=== PATIENT | female | born 1955 | race Caucasian/White ===

== ENCOUNTER → 2018-02-08 | Outpatient (CLI) | payer OTHER ==
[~2018-02-08] MED LIST: METOPROLOL SUCC50 MG PO; NEXIUM40 MG PO; SINGULAIR10 MG PO; VASOTEC10 M1 PO
--- NOTE | 2018-02-18 08:25 | Diagnostic Imaging Report ---
#[id number] - MGSCRBIL #BILATERAL DIGITAL SCREENING MAMMOGRAM WITH CAD: 02/08/2018 CLINICAL: Routine screening. Comparison is made to exams dated: 01/29/2017 mammogram and 01/24/2015 mammogram - [facility]. Current study contains 4 films. There are scattered fibroglandular elements in both breasts. Current study was also evaluated with a Computer Aided Detection (CAD) system. There are benign calcifications in both breasts. No significant masses, calcifications, or other findings are seen in either breast. There has been no significant interval change. IMPRESSION: BENIGN There is no mammographic evidence of malignancy. A 1 year screening mammogram is recommended. The patient will be notified by letter of the results. Amador kang/rocco:02/17/2018 08:08:05 Surgeon Assistant: Octavia BAKER(R)(M), [facility] letter sent: Compared to Prior B9 Mammogram BI-RADS: 2 Benign
== END ==
LOC: MAMMO 08:40
PROVIDERS: ATTEND Internal Medicine
DX: Z12.31 Encounter for screening mammogram for malignant neoplasm of breast (principal)
CPT/HCPCS: 77067

== ENCOUNTER 2018-06-21 09:26 | Emergency (ER) | payer OTHER ==
[~2018-06-21] VITALS: Ht 165.1 cm; Wt 81.6 kg
--- OUTSIDE RECORDS SUMMARY | 2018-06-21 09:29 | XMS REPORT | Continuity of Care Document ---
Author Author [facility] Interface Address Unknown Phone Unavailable Problems Problem Status Onset Date Classification Date Reported Comments Source CHEST PAIN Active 04/04/2014 [facility] Hypertension Resolved Problem 04/08/2014 [facility] Pulmonary sarcoidosis Resolved Problem 04/08/2014 [facility] Vertigo Resolved Problem 04/08/2014 [facility] CHEST PAIN NOS Active [facility] Medications Medication Details Route Status Patient Instructions Ordering Provider Order Date Source Lisinopril 20 mg, 1 tab, Route: PO, Drug form: TAB, Daily, Dosing Weight 86.364, kg, Start date: 04/07/14 9:00:00, Duration: 30 day, Stop date: 05/06/14 9:00:00Notes: (Same as: Prinivil, Zestril) No Longer Active 04/07/2014 [facility] Saline Flush 0.9% 10 ml, Route: IVP, Drug Form: INJ, Dosing Weight 86.364, kg, Q12H, Start date: 04/06/14 21:00:00, Duration: 30 day, Stop date: 05/06/14 9:00:00Notes: (Same as: BD Posiflush) Inactive 04/07/2014 [facility] Lipitor 40 mg, 1 tab, Route: PO, Drug form: TAB, Bedtime, Dosing Weight 86.364, kg, Start date: 04/06/14 21:00:00, Duration: 30 day, Stop date: 05/05/14 21:00:00Notes: (Same as: Lipitor) Inactive 04/07/2014 [facility] 24 HR Diltiazem Hydrochloride 180 MG Extended Release Tablet [Cardizem] 180 mg=1 tab, PO, Daily, # 30 tab, 0 Refill(s) Active 04/06/2014 [facility] Saline Flush 0.9% 10 ml, Route: IVP, Drug Form: INJ, Dosing Weight 86.364, kg, PRN, PRN Line Flush, Start date: 04/06/14 10:57:00, Duration: 30 day, Stop date: 05/06/14 10:56:00Notes: (Same as: BD Posiflush) Inactive 04/06/2014 [facility] Nitroglycerin 0.4 mg, Route: SL, Drug form: TAB, Q5Min, Dosing Weight 86.364, kg, PRN Chest Pain, Start date: 04/06/14 10:57:00, Duration: 3 doses or times, Stop date: Limited # of times Inactive 04/06/2014 [facility] Lipitor 80 mg, 2 tab, Route: PO, Drug form: TAB, Bedtime, Dosing Weight 86.364, kg, Start date: 04/05/14 21:00:00, Duration: 30 day, Stop date: 05/04/14 21:00:00Notes: (Same as: Lipitor) No Longer Active 04/06/2014 [facility] Acetylcysteine 200 MG/ML Inhalant Solution 600 mg, 3 mL, Route: PO, Drug form: SOLN, BID, Dosing Weight 86.364, kg, Start date: 04/05/14 17:00:00, Duration: 2 day, Stop date: 04/07/14 9:00:00 No Longer Active 04/05/2014 [facility] NS + KCL 20mEq/L 1000ml (Premix) 1,000 mL 1,000 mL, Rate: 100 ml/hr, Infuse over: 10 hr, Route: IV, Dosing Weight 86.364 kg, Total Volume: 1,000, Start date: 04/05/14 16:41:00, Duration: 30 day, Stop date: 05/05/14 16:40:00Notes: PREMIX IV - Do Not Alter No Longer Active 04/05/2014 [facility] Nitroglycerin 0.4 MG Sublingual Tablet 0.4 mg=1 tab, SL, Q5Min, Chest pain, # 50 tab, 0 Refill(s) Active 04/05/2014 [facility] pantoprazole 20 mg oral enteric coated tablet 20 mg=1 tab, PO, Before Dinner, # 30 tab, 0 Refill(s) No Longer Active 04/05/2014 [facility] 24 HR Metoprolol Tartrate 50 MG Extended Release Tablet [Toprol] 50 mg=1 tab, PO, Daily, # 30 tab, 0 Refill(s) No Longer Active 04/05/2014 [facility] aspirin 81 mg, 1 tab, Route: PO, Drug form: ECTAB, Daily, Dosing Weight 86.364, kg, Start date: 04/05/14 9:00:00, Duration: 30 day, Stop date: 05/04/14 9:00:00Notes: Do not crush or chew. (Same As: Ecotrin) No Longer Active 04/05/2014 [facility] Nexium 40 mg, Route: PO, Daily, Dosing Weight 86.364, kg, Start date: 04/05/14 9:00:00, Duration: 30 day, Stop date: 05/04/14 9:00:00 No Longer Active 04/05/2014 [facility] Enalapril 10 mg, 1 tab, Route: PO, Drug form: TAB, Daily, Dosing Weight 86.364, kg, Start date: 04/05/14 9:00:00, Duration: 30 day, Stop date: 05/04/14 9:00:00Notes: (Same as: Vasotec) No Longer Active 04/05/2014 [facility] 24 HR Metoprolol Tartrate 50 MG Extended Release Tablet [Toprol] 50 mg, 1 tab, Route: PO, Drug form: ERTAB, Daily, Start date: 04/05/14 9:00:00, Duration: 30 day, Stop date: 05/04/14 9:00:00Notes: (Same as: Toprol XL) May split tab, but do not crush. No Longer Active 04/05/2014 [facility] Lisinopril 10 mg, 1 tab, Route: PO, Drug form: TAB, Daily, Dosing Weight 86.364, kg, Start date: 04/05/14 9:00:00, Duration: 30 day, Stop date: 05/04/14 9:00:00Notes: (Same as: Prinivil, Zestril) No Longer Active 04/05/2014 [facility] Protonix 20 mg, 1 tab, Route: PO, Drug form: ECTAB, Before Dinner, Dosing Weight 86.364, kg, Start date: 04/04/14 23:59:00, Duration: 30 day, Stop date: 05/03/14 16:30:00Notes: Tablet should not be chewed or crushed. No Longer Active 04/05/2014 [facility] Phenergan 12.5 mg, 0.5 mL, Route: IVPB, Q4H, Dosing Weight 86.364, kg, PRN Nausea & Vomiting, Start date: 04/04/14 22:22:00, Duration: 30 day, Stop date: 05/04/14 22:21:00Notes: Do not give IV push. (Same as: Phenergan) No Longer Active 04/05/2014 [facility] Atropine 0.5 mg, 5 mL, Route: IV, Drug form: INJ, ONCE, Dosing Weight 86.364, kg, PRN Bradycardia, Start date: 04/04/14 18:56:00, Symptomatic Bradycardia, Heart rate less than 40. No Longer Active 04/05/2014 [facility] Nitroglycerin 0.4 MG Sublingual Tablet [Nitrostat] 0.4 mg, 1 tab, Route: SL, Drug form: TAB, Q5Min, Dosing Weight 86.364, kg, PRN Chest Pain, Start date: 04/04/14 18:56:00, Duration: 3 doses or times, Stop date: Limited # of timesNotes: (Same as:Nitroquick, Nitrostat) "Do Not Crush" Sublingual tablet No Longer Active 04/05/2014 [facility] Ondansetron 4 mg, 2 mL, Route: IV, Drug form: INJ, Q6H, Dosing Weight 86.364, kg, PRN Nausea, Start date: 04/04/14 18:55:00, Duration: 30 day, Stop date: 05/04/14 18:54:00Notes: (Same as: Zofran) No Longer Active 04/05/2014 [facility] Enoxaparin 40 mg, 0.4 mL, Route: SUB-Q, Drug form: INJ, [id number], Dosing Weight 86.364, kg, Start date: 04/04/14 18:00:00, Duration: 30 day, Stop date: 05/03/14 18:00:00Notes: (Same as: Lovenox) No Longer Active 04/05/2014 [facility] enalapril 10 mg oral tablet 10 mg=1 tab, PO, Daily, # 30 tab, 0 Refill(s) Active 04/04/2014 [facility] metoprolol 100 mg oral tablet, extended release 100 mg=1 tab, PO, BID, 0 Refill(s) No Longer Active 04/04/2014 [facility] aspirin 81 mg, PO, Daily, 0 Refill(s) Active 04/04/2014 [facility] Nexium Daily, 0 Refill(s) Active 04/04/2014 [facility] Allergies, Adverse Reactions, Alerts Substance Category Reaction Severity Reaction type Status Date Reported Comments Source Nubain Assertion Drug allergy Active [facility] Immunizations Immunization Date Given Site Status Last Updated Comments Source Results Order Name Results Value Reference Range Date Interpretation Comments Source ELECTROLYTES Chloride Lvl 107 meq/L 95 - 109 04/06/2014 [facility] ELECTROLYTES Potassium Lvl 4.0 meq/L 3.5 - 5.1 04/06/2014 [facility] ELECTROLYTES Sodium Lvl 143 meq/L 135 - 145 04/06/2014 [facility] ELECTROLYTES eGFR 82 mL/min/1.73m2 04/06/2014 1Result Comment: The eGFR is calculated using the CKD-EPI formula. In most young, healthy individuals the eGFR will be >90 mL/min/1.73m2. The eGFR declines with age. An eGFR of 60-89 may be normal in some populations, particularly the elderly, for whom the CKD-EPI formula has not been extensively validated. Use of the eGFR is not recommended in the following populations: Individuals with unstable creatinine concentrations, including patients and those with serious co-morbid conditions. Patients with extremes in muscle mass or diet. The data above are obtained from the National Kidney Disease Education Program (NKDEP) which additionally recommends that when the eGFR is used in patients with extremes of body mass index for purposes of drug dosing, the eGFR should be multiplied by the estimated BMI. [facility] ELECTROLYTES BUN 10 mg/dL 7 - 22 04/06/2014 [facility] ELECTROLYTES Creatinine Lvl 0.8 mg/dL 0.5 - 1.4 04/06/2014 [facility] ELECTROLYTES CO2 31 meq/L 24 - 32 04/06/2014 [facility] ELECTROLYTES Glucose Lvl 93 mg/dL 70 - 99 04/06/2014 4Interpretive Data: Adult reference range values reflect the clinical guidelines of the [place] [employer]. [facility] ELECTROLYTES Calcium Lvl 8.4 mg/dL 8.5 - 10.5 04/06/2014 [facility] ELECTROLYTES AGAP 9.0 meq/L 10.0 - 20.0 04/06/2014 [facility] CHEM PANEL A/G Ratio 1.3 0.7 - 1.6 04/06/2014 [facility] CHEM PANEL Globulin 2.7 g/dL 2.0 - 4.0 04/06/2014 [facility] CHEM PANEL AGAP 9.6 meq/L 10.0 - 20.0 04/06/2014 [facility] CHEM PANEL B/C Ratio 12 6 - 25 04/06/2014 [facility] CHEM PANEL eGFR 82 mL/min/1.73m2 04/06/2014 2Result Comment: The eGFR is calculated using the CKD-EPI formula. In most young, healthy individuals the eGFR will be >90 mL/min/1.73m2. The eGFR declines with age. An eGFR of 60-89 may be normal in some populations, particularly the elderly, for whom the CKD-EPI formula has not been extensively validated. Use of the eGFR is not recommended in the following populations: Individuals with unstable creatinine concentrations, including patients and those with serious co-morbid conditions. Patients with extremes in muscle mass or diet. The data above are obtained from the National Kidney Disease Education Program (NKDEP) which additionally recommends that when the eGFR is used in patients with extremes of body mass index for purposes of drug dosing, the eGFR should be multiplied by the estimated BMI. [facility] CHEM PANEL Calcium Lvl 8.2 mg/dL 8.5 - 10.5 04/06/2014 [facility] CHEM PANEL CO2 27 meq/L 24 - 32 04/06/2014 [facility] CHEM PANEL Creatinine Lvl 0.8 mg/dL 0.5 - 1.4 04/06/2014 [facility] CHEM PANEL BUN 10 mg/dL 7 - 22 04/06/2014 [facility] CHEM PANEL Glucose Lvl 90 mg/dL 70 - 99 04/06/2014 5Interpretive Data: Adult reference range values reflect the clinical guidelines of the [place] [employer]. [facility] CHEM PANEL Bili Total 0.5 mg/dL 0.2 - 1.3 04/06/2014 [facility] CHEM PANEL AST 26 unit/L 0 - 37 04/06/2014 [facility] CHEM PANEL Alk Phos 78 unit/L 39 - 136 04/06/2014 [facility] CHEM PANEL Albumin Lvl 3.4 g/dL 3.5 - 5.0 04/06/2014 [facility] CHEM PANEL ALT 29 unit/L 0 - 65 04/06/2014 [facility] CHEM PANEL Total Protein 6.1 g/dL 6.4 - 8.4 04/06/2014 [facility] CHEM PANEL Sodium Lvl 142 meq/L 135 - 145 04/06/2014 [facility] CHEM PANEL Potassium Lvl 3.6 meq/L 3.5 - 5.1 04/06/2014 [facility] CHEM PANEL Chloride Lvl 109 meq/L 95 - 109 04/06/2014 [facility] HEMATOLOGY MPV 9.4 fL 7.4 - 10.4 04/06/2014 [facility] HEMATOLOGY Platelet 172 K/CMM 133 - 450 04/06/2014 [facility] HEMATOLOGY WBC 3.4 K/CMM 3.7 - 10.4 04/06/2014 [facility] HEMATOLOGY MCHC 33.7 g/dL 32.0 - 36.0 04/06/2014 [facility] HEMATOLOGY RDW 13.7 % 11.5 - 14.5 04/06/2014 [facility] HEMATOLOGY MCV 84.5 fL 80.0 - 98.0 04/06/2014 [facility] RBC 4.32 M/CMM 4.20 - 5.40 04/06/2014 [facility] Hgb 12.3 g/dL 12.0 - 16.0 04/06/2014 [facility] HEMATOLOGY Hct 36.5 % 36.0 - 48.0 04/06/2014 [facility] MCH 28.5 pg 27.0 - 31.0 04/06/2014 [facility] HEMATOLOGY Eosinophils # 0.2 K/CMM 0.0 - 0.5 04/06/2014 [facility] HEMATOLOGY Basophils 1.4 % 0.0 - 1.0 04/06/2014 [facility] HEMATOLOGY Segs-Bands # 1.8 K/CMM 1.5 - 8.1 04/06/2014 [facility] HEMATOLOGY Lymphocytes # 1.0 K/CMM 1.0 - 5.5 04/06/2014 [facility] HEMATOLOGY Monocytes # 0.4 K/CMM 0.0 - 0.8 04/06/2014 [facility] HEMATOLOGY Lymphocytes 28.5 % 20.0 - 40.0 04/06/2014 [facility] HEMATOLOGY Monocytes 11.3 % 2.0 - 12.0 04/06/2014 [facility] HEMATOLOGY Eosinophils 5.3 % 0.0 - 4.0 04/06/2014 [facility] HEMATOLOGY Segs 53.5 % 45.0 - 75.0 04/06/2014 [facility] ELECTROLYTES AGAP 10.0 meq/L 10.0 - 20.0 04/05/2014 [facility] ELECTROLYTES Globulin 2.6 g/dL 2.0 - 4.0 04/05/2014 [facility] ELECTROLYTES B/C Ratio 15 6 - 25 04/05/2014 [facility] ELECTROLYTES A/G Ratio 1.4 0.7 - 1.6 04/05/2014 [facility] ELECTROLYTES Creatinine Lvl 0.8 mg/dL 0.5 - 1.4 04/05/2014 [facility] ELECTROLYTES Potassium Lvl 4.0 meq/L 3.5 - 5.1 04/05/2014 [facility] ELECTROLYTES Sodium Lvl 143 meq/L 135 - 145 04/05/2014 [facility] ELECTROLYTES Chloride Lvl 107 meq/L 95 - 109 04/05/2014 [facility] ELECTROLYTES Albumin Lvl 3.7 g/dL 3.5 - 5.0 04/05/2014 [facility] ELECTROLYTES Calcium Lvl 8.9 mg/dL 8.5 - 10.5 04/05/2014 [facility] ELECTROLYTES eGFR 82 mL/min/1.73m2 04/05/2014 3Result Comment: The eGFR is calculated using the CKD-EPI formula. In most young, healthy individuals the eGFR will be >90 mL/min/1.73m2. The eGFR declines with age. An eGFR of 60-89 may be normal in some populations, particularly the elderly, for whom the CKD-EPI formula has not been extensively validated. Use of the eGFR is not recommended in the following populations: Individuals with unstable creatinine concentrations, including patients and those with serious co-morbid conditions. Patients with extremes in muscle mass or diet. The data above are obtained from the National Kidney Disease Education Program (NKDEP) which additionally recommends that when the eGFR is used in patients with extremes of body mass index for purposes of drug dosing, the eGFR should be multiplied by the estimated BMI. [facility] ELECTROLYTES ALT 31 unit/L 0 - 65 04/05/2014 [facility] ELECTROLYTES AST 20 unit/L 0 - 37 04/05/2014 [facility] ELECTROLYTES CO2 30 meq/L 24 - 32 04/05/2014 [facility] Total Protein 6.3 g/dL 6.4 - 8.4 04/05/2014 [facility] Glucose Lvl 88 mg/dL 70 - 99 04/05/2014 6Interpretive Data: Adult reference range values reflect the clinical guidelines of the [place] [employer]. [facility] ELECTROLYTES BUN 12 mg/dL 7 - 22 04/05/2014 [facility] ELECTROLYTES Bili Total 0.5 mg/dL 0.2 - 1.3 04/05/2014 [facility] ELECTROLYTES Alk Phos 82 unit/L 39 - 136 04/05/2014 [facility] HEMATOLOGY RDW 13.9 % 11.5 - 14.5 04/05/2014 [facility] MCHC 32.3 g/dL 32.0 - 36.0 04/05/2014 [facility] HEMATOLOGY MPV 10.2 fL 7.4 - 10.4 04/05/2014 [facility] HEMATOLOGY Platelet 176 K/CMM 133 - 450 04/05/2014 [facility] MCH 27.7 pg 27.0 - 31.0 04/05/2014 [facility] MCV 85.6 fL 80.0 - 98.0 04/05/2014 [facility] HEMATOLOGY Hct 38.4 % 36.0 - 48.0 04/05/2014 [facility] RBC 4.48 M/CMM 4.20 - 5.40 04/05/2014 [facility] HEMATOLOGY WBC 4.8 K/CMM 3.7 - 10.4 04/05/2014 [facility] HEMATOLOGY Hgb 12.4 g/dL 12.0 - 16.0 04/05/2014 [facility] HEMATOLOGY Monocytes # 0.4 K/CMM 0.0 - 0.8 04/05/2014 [facility] HEMATOLOGY Lymphocytes # 1.0 K/CMM 1.0 - 5.5 04/05/2014 [facility] HEMATOLOGY Eosinophils # 0.1 K/CMM 0.0 - 0.5 04/05/2014 [facility] HEMATOLOGY Basophils # 0.1 K/CMM 0.0 - 0.2 04/05/2014 [facility] HEMATOLOGY Segs 67.4 % 45.0 - 75.0 04/05/2014 [facility] HEMATOLOGY Monocytes 7.9 % 2.0 - 12.0 04/05/2014 [facility] HEMATOLOGY Lymphocytes 20.7 % 20.0 - 40.0 04/05/2014 [facility] HEMATOLOGY Basophils 1.3 % 0.0 - 1.0 04/05/2014 [facility] HEMATOLOGY Eosinophils 2.7 % 0.0 - 4.0 04/05/2014 [facility] Segs-Bands # 3.2 K/CMM 1.5 - 8.1 04/05/2014 [facility] CARDIAC ENZYMES Troponin-I 0.06 ng/mL 0.00 - 0.40 04/05/2014 [facility] CARDIAC ENZYMES Total CK 28 unit/L 12 - 191 04/05/2014 [facility] CARDIAC ENZYMES Troponin-I 0.06 ng/mL 0.00 - 0.40 04/05/2014 [facility] CARDIAC ENZYMES Total CK 28 unit/L 12 - 191 04/05/2014 [facility] CARDIAC ENZYMES BNP 161 pg/mL <=100 pg/mL 04/05/2014 7Interpretive Data: Elevated results are in line with increasing severity of congestive heart failure. Minor elevations between 100 and 300 may be seen with Myocardial Ischemia, Sodium retaining drugs, and compensated/treated heart failure. [facility] CHEM PANEL Alk Phos 88 unit/L 39 - 136 04/05/2014 [facility] CHEM PANEL AST 20 unit/L 0 - 37 04/05/2014 [facility] CHEM PANEL Bili Total 0.5 mg/dL 0.2 - 1.3 04/05/2014 [facility] CHEM PANEL Total Protein 6.6 g/dL 6.4 - 8.4 04/05/2014 [facility] CHEM PANEL Albumin Lvl 3.9 g/dL 3.5 - 5.0 04/05/2014 [facility] CHEM PANEL ALT 34 unit/L 0 - 65 04/05/2014 [facility] CHEM PANEL Globulin 2.7 g/dL 2.0 - 4.0 04/05/2014 [facility] CHEM PANEL B/C Ratio 16 6 - 25 04/05/2014 [facility] CHEM PANEL A/G Ratio 1.4 0.7 - 1.6 04/05/2014 [facility] RBC 4.63 M/CMM 4.20 - 5.40 04/05/2014 [facility] WBC 4.6 K/CMM 3.7 - 10.4 04/05/2014 [facility] Hgb 13.1 g/dL 12.0 - 16.0 04/05/2014 [facility] Platelet 172 K/CMM 133 - 450 04/05/2014 [facility] MPV 9.9 fL 7.4 - 10.4 04/05/2014 [facility] Hct 39.1 % 36.0 - 48.0 04/05/2014 [facility] MCH 28.3 pg 27.0 - 31.0 04/05/2014 [facility] MCV 84.6 fL 80.0 - 98.0 04/05/2014 [facility] RDW 13.6 % 11.5 - 14.5 04/05/2014 [facility] HEMATOLOGY MCHC 33.4 g/dL 32.0 - 36.0 04/05/2014 [facility] HEMATOLOGY PTT 36.8 s 22.9 - 35.8 04/05/2014 8Interpretive Data: Heparin Therapeutic Range: 57 - 92 Seconds [facility] LIPIDS CHD Risk 3.25 3.90 - 5.80 04/05/2014 [facility] LIPIDS LDL (Calculated) 101 mg/dL <=99 mg/dL 04/05/2014 [facility] LIPIDS VLDL 25 04/05/2014 [facility] LIPIDS Trig 127 mg/dL <=149 mg/dL 04/05/2014 [facility] LIPIDS Chol 182 mg/dL <=199 mg/dL 04/05/2014 [facility] LIPIDS HDL 56 mg/dL >=61 mg/dL 04/05/2014 [facility] THYROID PANEL TSH 1.490 uIU/mL 0.360 - 3.740 04/05/2014 [facility] Vital Signs Vital Sign Value Date Comments Source Heart Rate 57 04/06/2014 [facility] Diastolic (mm Hg) 77 04/06/2014 [facility] Systolic (mm Hg) 124 04/06/2014 [facility] Heart Rate 58 04/06/2014 [facility] Diastolic (mm Hg) 78 04/06/2014 [facility] Systolic (mm Hg) 125 04/06/2014 [facility] Temperature Oral (F) 97.6 F 04/06/2014 [facility] Systolic (mm Hg) 135 04/06/2014 [facility] Diastolic (mm Hg) 78 04/06/2014 [facility] Heart Rate 59 04/06/2014 [facility] Respitory Rate 16 04/06/2014 [facility] Weight 83.182 04/06/2014 [facility] Respitory Rate 16 04/06/2014 [facility] Temperature Oral (F) 97.3 F 04/06/2014 [facility] Temperature Oral (F) 97.9 F 04/06/2014 [facility] Respitory Rate 16 04/06/2014 [facility] BMI Calculated 31.68 04/04/2014 [facility] Weight 86.364 04/04/2014 [facility] Height 165.1 cm 04/04/2014 [facility] Encounters Location Location Details Encounter Type Encounter Number Reason For Visit Attending Provider ADM Date DC Date Status Source [facility] Inpatient [id number] Francisco Ugarte 04/06/2014 04/06/2014 [facility] Procedures Procedure Code Date Perfomer Comments Source Cardiac catheterization, combined right and left heart [id number] [facility] Hysterectomy [id number] [facility]
--- OUTSIDE RECORDS SUMMARY | 2018-06-21 09:29 | XMS REPORT | Summary of Care ---
Author Organization Unknown Address Unknown Phone Unavailable Encounter HQ Luc(CIRILO) [id number] Date(s): 04/06/14 - 04/06/14 [facility] [address] [address] Discharge Disposition: Home Physician Attending: Francisco Ugarte MD Physician Admitting: Francisco Ugarte MD Physician_Referring: Francisco Ugarte MD Reason for Visit CHEST PAIN Vital Signs 1 2 3 Most recent to oldest [Reference Range]: 165.1 cm (04/04/14 4:31 PM) Height 97.6 DegF (04/06/14 12:00 PM) 97.3 DegF (04/06/14 8:00 AM) 97.9 DegF (04/06/14 4:00 AM) Temperature Oral [96.4-99.1 DegF] 124 mmHg (04/06/14 12:45 PM) 125 mmHg (04/06/14 12:15 PM) 135 mmHg (04/06/14 12:00 PM) Systolic Blood Pressure [90-140 mmHg] 77 mmHg (04/06/14 12:45 PM) 78 mmHg (04/06/14 12:15 PM) 78 mmHg (04/06/14 12:00 PM) Diastolic Blood Pressure [60-90 mmHg] 16 BRMIN (04/06/14 12:00 PM) 16 BRMIN (04/06/14 8:00 AM) 16 BRMIN (04/06/14 4:00 AM) Respiratory Rate [14-20 BRMIN] 57 bpm *LOW* (04/06/14 12:45 PM) 58 bpm *LOW* (04/06/14 12:15 PM) 59 bpm *LOW* (04/06/14 12:00 PM) Peripheral Pulse Rate [60-100 bpm] 83.182 kg (04/06/14 8:15 AM) 83.182 kg (04/06/14 8:15 AM) 86.364 kg (04/04/14 4:31 PM) Weight 31.68 m2 (04/04/14 4:31 PM) Body Mass Index Problem List Condition Effective Dates Status Health Status Informant Hypertension(Confirm Resolved ed) Pulmonary Resolved sarcoidosis(Confirme d) Vertigo(Confirmed) Resolved Allergies, Adverse Reactions, Alerts Substance Reaction Severity Status Nubain Active Medications aspirin 81 mg, 1 tab, Route: PO, Drug form: ECTAB, Daily, Dosing Weight 86.364, kg, Star t date: 04/05/14 9:00:00, Duration: 30 day, Stop date: 05/04/14 9:00:00 Notes: Do not crush or chew.(Same As: Ecotrin) Start Date: 04/05/14 Stop Date: 04/06/14 Status: Discontinued aspirin 81 mg, PO, Daily, 0 Refill(s) Start Date: 04/04/14 Status: Ordered atropine 0.5 mg, 5 mL, Route: IV, Drug form: INJ, ONCE, Dosing Weight 86.364, kg, PRN Bra dycardia, Start date: 04/04/14 18:56:00, Symptomatic Bradycardia, Heart rate les s than 40. Start Date: 04/04/14 Stop Date: 04/06/14 Status: Discontinued Cardizem LA 180 mg/24 hours oral tablet, extended release 180 mg=1 tab, PO, Daily, # 30 tab, 0 Refill(s) Start Date: 04/06/14 Status: Ordered enalapril 10 mg, 1 tab, Route: PO, Drug form: TAB, Daily, Dosing Weight 86.364, kg, Start date: 04/05/14 9:00:00, Duration: 30 day, Stop date: 05/04/14 9:00:00 Notes: (Same as: Vasotec) Start Date: 04/05/14 Stop Date: 04/06/14 Status: Discontinued enalapril 10 mg oral tablet 10 mg=1 tab, PO, Daily, # 30 tab, 0 Refill(s) Start Date: 04/04/14 Status: Ordered enoxaparin 40 mg, 0.4 mL, Route: SUB-Q, Drug form: INJ, [id number], Dosing Weight 86.364, kg, Start date: 04/04/14 18:00:00, Duration: 30 day, Stop date: 05/03/14 18:00:00 Notes: (Same as: Lovenox) Start Date: 04/04/14 Stop Date: 04/06/14 Status: Discontinued Lipitor 40 mg, 1 tab, Route: PO, Drug form: TAB, Bedtime, Dosing Weight 86.364, kg, Star t date: 04/06/14 21:00:00, Duration: 30 day, Stop date: 05/05/14 21:00:00 Notes: (Same as: Lipitor) Start Date: 04/06/14 Stop Date: 04/06/14 Status: Canceled Lipitor 80 mg, 2 tab, Route: PO, Drug form: TAB, Bedtime, Dosing Weight 86.364, kg, Star t date: 04/05/14 21:00:00, Duration: 30 day, Stop date: 05/04/14 21:00:00 Notes: (Same as: Lipitor) Start Date: 04/05/14 Stop Date: 04/06/14 Status: Discontinued lisinopril 20 mg, 1 tab, Route: PO, Drug form: TAB, Daily, Dosing Weight 86.364, kg, Start date: 04/07/14 9:00:00, Duration: 30 day, Stop date: 05/06/14 9:00:00 Notes: (Same as: Prinivil, Zestril) Start Date: 04/07/14 Stop Date: 04/06/14 Status: Canceled lisinopril 10 mg, 1 tab, Route: PO, Drug form: TAB, Daily, Dosing Weight 86.364, kg, Start date: 04/05/14 9:00:00, Duration: 30 day, Stop date: 05/04/14 9:00:00 Notes: (Same as: Prinivil, Zestril) Start Date: 04/05/14 Stop Date: 04/04/14 Status: Canceled metoprolol 100 mg oral tablet, extended release 100 mg=1 tab, PO, BID, 0 Refill(s) Start Date: 04/04/14 Stop Date: 04/05/14 Status: Discontinued Mucomyst oral solution (mg) 600 mg, 3 mL, Route: PO, Drug form: SOLN, BID, Dosing Weight 86.364, kg, Start d ate: 04/05/14 17:00:00, Duration: 2 day, Stop date: 04/07/14 9:00:00 Start Date: 04/05/14 Stop Date: 04/06/14 Status: Discontinued NexIUM 40 mg, Route: PO, Daily, Dosing Weight 86.364, kg, Start date: 04/05/14 9:00:00, Duration: 30 day, Stop date: 05/04/14 9:00:00 Start Date: 04/05/14 Stop Date: 04/04/14 Status: Deleted NexIUM Daily, 0 Refill(s) Start Date: 04/04/14 Status: Ordered nitroglycerin 0.4 mg sublingual tablet 0.4 mg=1 tab, SL, Q5Min, Chest pain, # 50 tab, 0 Refill(s) Start Date: 04/05/14 Status: Ordered nitroglycerin SL Tab 0.4 mg, Route: SL, Drug form: TAB, Q5Min, Dosing Weight 86.364, kg, PRN Chest Pa in, Start date: 04/06/14 10:57:00, Duration: 3 doses or times, Stop date: Limite d # of times Start Date: 04/06/14 Stop Date: 04/06/14 Status: Deleted Nitrostat 0.4 mg sublingual tablet 0.4 mg, 1 tab, Route: SL, Drug form: TAB, Q5Min, Dosing Weight 86.364, kg, PRN C hest Pain, Start date: 04/04/14 18:56:00, Duration: 3 doses or times, Stop date: Limited # of times Notes: (Same as:Nitroquick, Nitrostat)"Do Not Crush" Sublingual tablet Start Date: 04/04/14 Stop Date: 04/06/14 Status: Discontinued NS + KCL 20mEq/L 1000ml (Premix) 1,000 mL 1,000 mL, Rate: 100 ml/hr, Infuse over: 10 hr, Route: IV, Dosing Weight 86.364 k g, Total Volume: 1,000, Start date: 04/05/14 16:41:00, Duration: 30 day, Stop da te: 05/05/14 16:40:00 Notes: PREMIX IV - Do Not Alter Start Date: 04/05/14 Stop Date: 04/06/14 Status: Discontinued ondansetron 4 mg, 2 mL, Route: IV, Drug form: INJ, Q6H, Dosing Weight 86.364, kg, PRN Nausea , Start date: 04/04/14 18:55:00, Duration: 30 day, Stop date: 05/04/14 18:54:00 Notes: (Same as: Zofran) Start Date: 04/04/14 Stop Date: 04/06/14 Status: Discontinued pantoprazole 20 mg oral enteric coated tablet 20 mg=1 tab, PO, Before Dinner, # 30 tab, 0 Refill(s) Start Date: 04/05/14 Stop Date: 04/06/14 Status: Discontinued Phenergan + Sodium Chloride 0.9% IV 50 mL 12.5 mg, 0.5 mL, Route: IVPB, Q4H, Dosing Weight 86.364, kg, PRN Nausea & Vomiting, Start date: 04/04/14 22:22:00, Duration: 30 day, Stop date: 05/04/14 22:21:00 Notes: Do not give IV push. (Same as: Phenergan) Start Date: 04/04/14 Stop Date: 04/06/14 Status: Discontinued Protonix 20 mg, 1 tab, Route: PO, Drug form: ECTAB, Before Dinner, Dosing Weight 86.364, kg, Start date: 04/04/14 23:59:00, Duration: 30 day, Stop date: 05/03/14 16:30:0 0 Notes: Tablet should not be chewed or crushed. Start Date: 04/04/14 Stop Date: 04/06/14 Status: Discontinued Saline Flush 0.9% 10 ml, Route: IVP, Drug Form: INJ, Dosing Weight 86.364, kg, PRN, PRN Line Flush , Start date: 04/06/14 10:57:00, Duration: 30 day, Stop date: 05/06/14 10:56:00 Notes: (Same as: BD Posiflush) Start Date: 04/06/14 Stop Date: 04/06/14 Status: Discontinued Saline Flush 0.9% 10 ml, Route: IVP, Drug Form: INJ, Dosing Weight 86.364, kg, Q12H, Start date: 0 04/06/14 21:00:00, Duration: 30 day, Stop date: 05/06/14 9:00:00 Notes: (Same as: BD Posiflush) Start Date: 04/06/14 Stop Date: 04/06/14 Status: Canceled Toprol-XL 50 mg oral tablet, extended release 50 mg, 1 tab, Route: PO, Drug form: ERTAB, Daily, Start date: 04/05/14 9:00:00, Duration: 30 day, Stop date: 05/04/14 9:00:00 Notes: (Same as: Toprol XL) May split tab, but do not crush. Start Date: 04/05/14 Stop Date: 04/06/14 Status: Discontinued Toprol-XL 50 mg oral tablet, extended release 50 mg=1 tab, PO, Daily, # 30 tab, 0 Refill(s) Start Date: 04/05/14 Stop Date: 04/06/14 Status: Discontinued Results ELECTROLYTES 1 2 3 Most recent to oldest [Reference Range]: 143 mEq/L (04/06/14 11:52 AM) 142 mEq/L (04/06/14 5:30 AM) 143 mEq/L (04/05/14 3:00 AM) Sodium Lvl [135-145 mEq/L] 4.0 mEq/L (04/06/14 11:52 AM) 3.6 mEq/L (04/06/14 5:30 AM) 4.0 mEq/L (04/05/14 3:00 AM) Potassium Lvl [3.5-5.1 mEq/L] 107 mEq/L (04/06/14 11:52 AM) 109 mEq/L (04/06/14 5:30 AM) 107 mEq/L (04/05/14 3:00 AM) Chloride Lvl [95-109 mEq/L] 31 mEq/L (04/06/14 11:52 AM) 27 mEq/L (04/06/14 5:30 AM) 30 mEq/L (04/05/14 3:00 AM) CO2 [24-32 mEq/L] 9.0 mEq/L *LOW* (04/06/14 11:52 AM) 9.6 mEq/L *LOW* (04/06/14 5:30 AM) 10.0 mEq/L (04/05/14 3:00 AM) AGAP [10.0-20.0 mEq/L] CHEM PANEL 1 2 3 Most recent to oldest [Reference Range]: 0.8 mg/dL (04/06/14 11:52 AM) 0.8 mg/dL (04/06/14 5:30 AM) 0.8 mg/dL (04/05/14 3:00 AM) Creatinine Lvl [0.5-1.4 mg/dL] 82 mL/min/1.73m2 1 *NA* (04/06/14 11:52 AM) 82 mL/min/1.73m2 2 *NA* (04/06/14 5:30 AM) 82 mL/min/1.73m2 3 *NA* (04/05/14 3:00 AM) eGFR 10 mg/dL (04/06/14 11:52 AM) 10 mg/dL (04/06/14 5:30 AM) 12 mg/dL (04/05/14 3:00 AM) BUN [7-22 mg/dL] 12 (04/06/14 5:30 AM) 15 (04/05/14 3:00 AM) 16 (04/04/14 8:34 PM) B/C Ratio [6-25] 93 mg/dL 4 (04/06/14 11:52 AM) 90 mg/dL 5 (04/06/14 5:30 AM) 88 mg/dL 6 (04/05/14 3:00 AM) Glucose Lvl [70-99 mg/dL] 6.1 g/dL *LOW* (04/06/14 5:30 AM) 6.3 g/dL *LOW* (04/05/14 3:00 AM) 6.6 g/dL (04/04/14 8:34 PM) Total Protein [6.4-8.4 g/dL] 3.4 g/dL *LOW* (04/06/14 5:30 AM) 3.7 g/dL (04/05/14 3:00 AM) 3.9 g/dL (04/04/14 8:34 PM) Albumin Lvl [3.5-5.0 g/dL] 2.7 g/dL (04/06/14 5:30 AM) 2.6 g/dL (04/05/14 3:00 AM) 2.7 g/dL (04/04/14 8:34 PM) Globulin [2.0-4.0 g/dL] 1.3 (04/06/14 5:30 AM) 1.4 (04/05/14 3:00 AM) 1.4 (04/04/14 8:34 PM) A/G Ratio [0.7-1.6] 8.4 mg/dL *LOW* (04/06/14 11:52 AM) 8.2 mg/dL *LOW* (04/06/14 5:30 AM) 8.9 mg/dL (04/05/14 3:00 AM) Calcium Lvl [8.5-10.5 mg/dL] 29 unit/L (04/06/14 5:30 AM) 31 unit/L (04/05/14 3:00 AM) 34 unit/L (04/04/14 8:34 PM) ALT [0-65 unit/L] 26 unit/L (04/06/14 5:30 AM) 20 unit/L (04/05/14 3:00 AM) 20 unit/L (04/04/14 8:34 PM) AST [0-37 unit/L] 78 unit/L (04/06/14 5:30 AM) 82 unit/L (04/05/14 3:00 AM) 88 unit/L (04/04/14 8:34 PM) Alk Phos [39-136 unit/L] 0.5 mg/dL (04/06/14 5:30 AM) 0.5 mg/dL (04/05/14 3:00 AM) 0.5 mg/dL (04/04/14 8:34 PM) Bili Total [0.2-1.3 mg/dL] 1Result Comment: The eGFR is calculated using [...] from the National Kidney Disease Education Program ( NKDEP) which additionally recommends that when the eGFR is used in patients with extremes of body mass index for purposes of drug dosing, the eGFR should be mul tiplied by the estimated BMI. 2Result Comment: The eGFR is calculated using [...] from the National Kidney Disease Education Program ( NKDEP) which additionally recommends that when the eGFR is used in patients with extremes of body mass index for purposes of drug dosing, the eGFR should be mul tiplied by the estimated BMI. 3Result Comment: The eGFR is calculated using [...] from the National Kidney Disease Education Program ( NKDEP) which additionally recommends that when the eGFR is used in patients with extremes of body mass index for purposes of drug dosing, the eGFR should be mul tiplied by the estimated BMI. 4Interpretive Data: Adult reference range values reflect the clinical guidelines of the [place] [employer]. 5Interpretive Data: Adult reference range values reflect the clinical guidelines of the [place] [employer]. 6Interpretive Data: Adult reference range values reflect the clinical guidelines of the [place] [employer]. CARDIAC ENZYMES 1 2 3 Most recent to oldest [Reference Range]: 28 unit/L (04/05/14 2:00 AM) 28 unit/L (04/04/14 8:34 PM) Total CK [12-191 unit/L] 0.06 ng/mL (04/05/14 2:00 AM) 0.06 ng/mL (04/04/14 8:34 PM) Troponin-I [0.00-0.40 ng/mL] 161 pg/mL 7 *HI* (04/04/14 8:34 PM) BNP [<=100 pg/mL] 7Interpretive Data: Elevated results are in line with increasing severity of congestive heart failure. Minor elevations between 100 and 300 may be seen with Myocardial Ischemia, Sodium retaining drugs, and compensated/treated heart failure. LIPIDS 1 2 3 Most recent to oldest [Reference Range]: 3.25 *LOW* (04/04/14 8:34 PM) CHD Risk [3.90-5.80] 182 mg/dL (04/04/14 8:34 PM) Chol [<=199 mg/dL] 127 mg/dL (04/04/14 8:34 PM) Trig [<=149 mg/dL] 56 mg/dL *LOW* (04/04/14 8:34 PM) HDL [>=61 mg/dL] 101 mg/dL *HI* (04/04/14 8:34 PM) LDL (Calculated) [<=99 mg/dL] 25 *NA* (04/04/14 8:34 PM) VLDL THYROID PANEL 1 2 3 Most recent to oldest [Reference Range]: 1.490 uIU/mL (04/04/14 8:34 PM) TSH [0.360-3.740 uIU/mL] HEMATOLOGY 1 2 3 Most recent to oldest [Reference Range]: 3.4 K/CMM *LOW* (04/06/14 5:30 AM) 4.8 K/CMM (04/05/14 3:00 AM) 4.6 K/CMM (04/04/14 8:34 PM) WBC [3.7-10.4 K/CMM] 4.32 M/CMM (04/06/14 5:30 AM) 4.48 M/CMM (04/05/14 3:00 AM) 4.63 M/CMM (04/04/14 8:34 PM) RBC [4.20-5.40 M/CMM] 12.3 g/dL (04/06/14 5:30 AM) 12.4 g/dL (04/05/14 3:00 AM) 13.1 g/dL (04/04/14 8:34 PM) Hgb [12.0-16.0 g/dL] 36.5 % (04/06/14 5:30 AM) 38.4 % (04/05/14 3:00 AM) 39.1 % (04/04/14 8:34 PM) Hct [36.0-48.0 %] 84.5 fL (04/06/14 5:30 AM) 85.6 fL (04/05/14 3:00 AM) 84.6 fL (04/04/14 8:34 PM) MCV [80.0-98.0 fL] 28.5 pg (04/06/14 5:30 AM) 27.7 pg (04/05/14 3:00 AM) 28.3 pg (04/04/14 8:34 PM) MCH [27.0-31.0 pg] 33.7 g/dL (04/06/14 5:30 AM) 32.3 g/dL (04/05/14 3:00 AM) 33.4 g/dL (04/04/14 8:34 PM) MCHC [32.0-36.0 g/dL] 13.7 % (04/06/14 5:30 AM) 13.9 % (04/05/14 3:00 AM) 13.6 % (04/04/14 8:34 PM) RDW [11.5-14.5 %] 172 K/CMM (04/06/14 5:30 AM) 176 K/CMM (04/05/14 3:00 AM) 172 K/CMM (04/04/14 8:34 PM) Platelet [133-450 K/CMM] 9.4 fL (04/06/14 5:30 AM) 10.2 fL (04/05/14 3:00 AM) 9.9 fL (04/04/14 8:34 PM) MPV [7.4-10.4 fL] 53.5 % (04/06/14 5:30 AM) 67.4 % (04/05/14 3:00 AM) Segs [45.0-75.0 %] 28.5 % (04/06/14 5:30 AM) 20.7 % (04/05/14 3:00 AM) Lymphocytes [20.0-40.0 %] 11.3 % (04/06/14 5:30 AM) 7.9 % (04/05/14 3:00 AM) Monocytes [2.0-12.0 %] 5.3 % *HI* (04/06/14 5:30 AM) 2.7 % (04/05/14 3:00 AM) Eosinophils [0.0-4.0 %] 1.4 % *HI* (04/06/14 5:30 AM) 1.3 % *HI* (04/05/14 3:00 AM) Basophils [0.0-1.0 %] 1.8 K/CMM (04/06/14 5:30 AM) 3.2 K/CMM (04/05/14 3:00 AM) Segs-Bands # [1.5-8.1 K/CMM] 1.0 K/CMM (04/06/14 5:30 AM) 1.0 K/CMM (04/05/14 3:00 AM) Lymphocytes # [1.0-5.5 K/CMM] 0.4 K/CMM (04/06/14 5:30 AM) 0.4 K/CMM (04/05/14 3:00 AM) Monocytes # [0.0-0.8 K/CMM] 0.2 K/CMM (04/06/14 5:30 AM) 0.1 K/CMM (04/05/14 3:00 AM) Eosinophils # [0.0-0.5 K/CMM] 0.1 K/CMM (04/05/14 3:00 AM) Basophils # [0.0-0.2 K/CMM] 36.8 seconds 8 *HI* (04/04/14 8:34 PM) PTT [22.9-35.8 seconds] 8Interpretive Data: Heparin Therapeutic Range: 57 - 92 Seconds Medications Administered During Your Visit No data available for this section Immunizations No data available for this section Procedures Procedure Type Body Site Date of Procedure Related Diagnosis Cardiac catheterization, combined right and left heart Hysterectomy Social History Social History Type Response Smoking Status Never smoker, Exposure to Tobacco Smoke None, Cigarette Smoking Last 365 Days No, Reg Smoking Cessation Counseling No Assessment and Plan Extracted from: Title: Clinical Document Author: Ric Pederson MD Date: 04/06/14 Progress Note -Cardiology- [facility] (Office) [address] [facility], [address] (ph) [phone] Attending: Francisco Ugarte MDPhone: Service: Internal Medicine Code status: None Specified=FULL CODE Reason for Admission: CHEST PAIN Working DRG: Chest pain Isolation: None Documented Consulting Physicians: Ric Pederson MDOffice: MSO: [id number]: Cardiology Francisco Ugarte MDOffice: MSO: [id number]: Medicine Subjective No acute overnight Negative Cath Allergies: Nubain Medications (12) Active Scheduled Meds (7): 04/05/14 acetylcysteine (Mucomyst oral solution (mg)) 600 mg PO BID 04/05/14 aspirin 81 mg PO Daily 04/06/14 atorvastatin (Lipitor) 40 mg PO Bedtime 04/07/14 lisinopril 20 mg PO Daily 04/05/14 metoprolol (Toprol-XL 50 mg oral tablet, extended release) 50 mg PO Daily 04/04/14 pantoprazole (Protonix) 20 mg PO Before Dinner 04/06/14 sodium chloride (Saline Flush 0.9%) 10 ml IVP Q12H Unscheduled Meds: None PRN Meds (4): 04/04/14 nitroglycerin (Nitrostat 0.4 mg sublingual tablet) 0.4 mg SL Q5Min 04/04/14 ondansetron 4 mg IV Q6H 04/04/14 promethazine + Sodium Chloride 0.9% IV 50 mL (Phenergan + Sodium Chloride 0.9% IV 50 mL) 12.5 mg IVPB Q4H 151.5 ml/hr 04/06/14 sodium chloride (Saline Flush 0.9%) 10 ml IVP PRN One Time Meds: None Continuous Infusions (1): 04/05/14 LVP solution with potassium 1,000 mL (NS + KCL 20mEq/L 1000ml (Premix) 1,000 mL) 1,000 mL 100 ml/hr Objective Review of Systems HEENT: no diplopia Respiratory: no cough Cardiovascular: no chest pain Gastrointestinal: no diarrhea Genitourinary: no dysuria Integumentary: no skin lesions Extremities: no edema Neurologic: no hx of CVA/TIA Apolinar/Lymph: no LAD Endocrine: no polyuria nor polydipsia Psychiatric: at baseline VitalsTmp(F)Tmp(C)[id number] 04/06 12:45 124/77---57--96------ 04/06 12:15 125/78---58--97------ 04/06 12:0097.636.62jaus450/78---[id number]------ 04/06 11:45 115/75---60 04/06 11:30 122/79---51--94------ 24 Hr Tmax: 98.2F (36.78c) at 04/05 20:00Vital Signs are the last 5 in the past 48 hours. 24 Hr Tmin: 97.3F (36.28c) at 04/06 08:00Weights are the last 5 in 60 days, plus initial. DateWt(kg)Wt(lb)Ht(cm)Ht(in)MethodBMIBSA 04/04 (initial) 86.36 190.00Estimated 31.71.99 65.10 65.00Stated (no point of care glucose results charted in last 24 hours) Most Recent Scores: 04/06/14Pain Intensity NRS (0-10)0 04/06/14Braden Score20 04/06/14Glasgow Coma Score15 04/06/14[place] Fall Score5 Lines, Tubes, and Drains: 04/05/2014 22:30 Peripheral Lines: Hand Left Over the needle catheter 22 gauge 04/05/2014 12:34 Peripheral Lines: Antecubital Right Over the needle catheter Surgical Procedures: (no date)Left Heart Cath [id number](primary surgeon unspecified) 24hr Labs 04/06 1152 Glucose Lvl93 BUN10 Creatinine Lvl0.8 Sodium Rfk605 Potassium Lvl4.0 Chloride Kgk750 CO231 AGAP9.0 L Calcium Lvl8.4 L eGFR82 04/06 0530 Sodium Izg001 Potassium Lvl3.6 Chloride Sch001 CO227 AGAP9.6 L Glucose Lvl90 Creatinine Lvl0.8 BUN10 B/C Ratio12 Total Protein6.1 L Albumin Lvl3.4 L Globulin2.7 A/G Ratio1.3 Calcium Lvl8.2 L ALT29 AST26 Alk Phos78 Bili Total0.5 eGFR82 WBC3.4 L RBC4.32 Hgb12.3 Hct36.5 MCV84.5 MCH28.5 MCHC33.7 RDW13.7 Utdyokrh404 MPV9.4 Segs53.5 Zsqtyklwh65.3 Lktrrxrwtka52.5 Eosinophils5.3 H Basophils1.4 H Segs-Bands #1.8 Lymphocytes #1.0 Monocytes #0.4 Eosinophils #0.2 Physical Exam: HEENT: PERRLA Neurological: A&O x 3, no confusion Cardiac: S1 & S2, no murmurs, denies chest pain, sinus rhythm Respiratory: Lungs clear, no wheezing, denies cough Gastrointestinal: Positive bowel sounds, denies constipation, denies abdominal pain Genitourinary: Voiding without difficulties Extremeties: No edema Skin: Intact Assessment & Plan: 58 yo WF s/p cath for + TMT stress, hx HTN, ? Afib paroxysmal CAD: no significant epicardial disease, possible micro vs HTN CMP. Trial of CCB, and control lipid and HTN Dispo: ok to DC discussed w/ dr Ugarte and follow up as O/P
--- OUTSIDE RECORDS SUMMARY | 2018-06-21 09:29 | XMS REPORT ---
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 Allergies, Adverse Reactions, Alerts Allergy Name Allergy Type Status Severity Reaction(s) Onset Date Inactive Date Treating Clinician Comments No Known Contrast Allergies DA Active U 2004-03-11 00:00:00 No Known Drug Allergies DA Active U 2004-03-11 00:00:00 No Known Food Allergies DA Active U 2004-03-11 00:00:00 No Known Other Allergies DA Active U 2004-03-11 00:00:00 No Known Drug Intolerances DA Active U 2004-03-08 00:00:00 Medications This patient has no known medications. Results Test Description Test Time Test Comments Text Results Atomic Results Result Comments - XR CHEST 2 V 2018-05-27 09:47:00 Name: DONITA MOSES [facility] : 1955 Age/S:62 /F [address] [facility] Unit#:[id number] Loc: [place] [address] Phys: Jr Gamez III, MD Dis Date: PHONE #: [phone] Status: JORGITO MORALES FAX #: [phone] Exam Date: 05/27/2018 Reason: WELL ADULT EXAM EXAMS: CPT CODE: [id number] XR CHEST 2 V 76723 HISTORY: Well adult exam. COMPARISON: None available. AP and lateral view of the chest: No acute infiltrates, effusion or congestion. Cardiac and the mediastinal silhouette are normal. IMPRESSION: No acute infiltrates, effusion or congestion. at 0947 Reported and signed by: Javed Damon M.D. CC: Jr Gamez III, MD Technologist: MALATHI MARSHALL, RT(R),CT Trnscrpt Data: 05/27/2018 (0947) t.SDR.TH4 Orig Print D/T: S: 05/27/2018 (0950) PAGE 1 Signed Report MAMMOGRAPHY DIGITAL SCR BILAT 2018-02-08 10:07:00 [place] [address] Patient Name: ODNITA MOSES MR #: [id number] : 1955 Age/Sex: 62/F Req #: [id number] Adm Physician: Ordered by: ALEJANDRO LIU M.D. Report #: [id number] [facility] Room[facility]Bed: Procedure: [id number] MG/MAMMOGRAPHY DIGITAL SCR BILAT Exam Date: 02/08/18 Exam Time: 0946 REPORT STATUS: Signed #[id number] - [id number] #BILATERAL DIGITAL SCREENING MAMMOGRAM WITH CAD: 02/08/2018 CLINICAL: Routine screening. Comparison is made to exams dated: 01/29/2017 mammogram and 01/24/2015 mammogram - [facility] [place] [facility]. Current study contains 4 films. There are scattered fibroglandular elements in both breasts. Current study was also evaluated with a Computer Aided Detection (CAD) system. There are benign calcifications in both breasts. No significant masses, calcifications, or other findings are seen in either breast. There has been no significant interval change. IMPRESSION: BENIGN There is no mammographic evidence of malignancy. A 1 year screening mammogram is recommended. The patient will be notified by letter of the results. Amador kang/rocco:02/17/2018 08:08:05 Creative Guru: Octavia AMEZCUA)(M), [facility] letter sent: Compared to Prior B9 Mammogram BI-RADS: 2 Benign Dictated By: AMADOR SYLVESTER DO 08 Transcribed By: ROCCO on 02/17/18 0808 COPY TO: ALEJANDRO CLEMENTE MD MAMMOGRAPHY DIGITAL SCR BILAT [place] [address] Patient Name: DONITA MOSES MR #: [id number] : 1955 Age/Sex: 61/F Req #: [id number] [facility] Physician: Ordered by: LUNDBERG ANDREW DO Report #: [id number] Location: MAMMO Room/Bed: Procedure: [id number] MG/MAMMOGRAPHY DIGITAL SCR BILAT Exam Date: 01/29/17 Exam Time: 09 REPORT STATUS: Signed #[id number] - MGSCRBIL #BILATERAL DIGITAL SCREENING MAMMOGRAM WITH CAD: 01/29/2017 CLINICAL: Routine screening. Comparison is made to exams dated: 02/04/2016 mammogram and 01/24/2015 mammogram - [facility] [place] [facility]. Current study contains 4 films. There are scattered fibroglandular elements in both breasts. Current study was also evaluated with a Computer Aided Detection (CAD) system. There are benign calcifications in both breasts. No significant masses, calcifications, or other findings are seen in either breast. There has been no significant interval change. IMPRESSION: BENIGN There is no mammographic evidence of malignancy. A 1 year screening mammogram is recommended. The patient will be notified by letter of the results. Amador kang/rocco:02/13/2017 07:43:03 Creative Guru: Amina BAKER(Oliva)(S[place]), [facility] letter sent: Compared to Prior B9 Mammogram BI-RADS: 2 Benign Dictated By: AMADOR SYLVESTER DO 0743 Transcribed By: ROCCO on 02/13/1743 COPY TO: MERCEDES LUNDBERG DO
[2018-06-21] MEDS ORDERED: METOCLOPRAMIDE HCL 10 MG/2ML VIAL IV ONE (10:15)
[2018-06-21] MEDS ORDERED: DIPHENHYDRAMINE HCL INJ 50 MG/ML VIAL IV ONE (10:15)
[2018-06-21] MEDS ORDERED: SODIUM CHLORIDE 0.9% 1000ML 1,000 ML IV SCH (10:15)
[2018-06-21 10:23] LABS: BASOPHILS # (AUTO) 0.1 (0.0-0.1); EOSINOPHILS # (AUTO) 0.2 (0.0-0.4); EOSINOPHILS % 2.5 % (0.0-6.0); HEMATOCRIT 47.5 % (34.2-44.1); HEMOGLOBIN 15.6 g/dL (12.0-16.0); LYMPHOCYTES # (AUTO) 0.9 (1.0-3.2); LYMPHOCYTES % 11.3 % (18.0-39.1); MEAN CORPUSCULAR HEMOGLOBIN 28.2 pg (28-32); MEAN CORPUSCULAR HGB CONC 32.8 g/dL (31-35); MEAN CORPUSCULAR VOLUME 85.7 fL (81-99); MONOCYTES # (AUTO) 0.7 (0.2-0.8); NEUTROPHILS # (AUTO) 6.1 (2.1-6.9); NEUTROPHILS % 75.7 % (38.7-80.0); PLATELET COUNT 276 x10e3/uL (140-360); RED BLOOD COUNT 5.54 x10e6/uL (3.6-5.1)
[2018-06-21 10:33] LABS: ALANINE AMINOTRANSFERASE 28 IU/L (0-55); ALBUMIN 4.5 g/dL (3.5-5.0); ALBUMIN/GLOBULIN RATIO 1.1 (0.8-2.0); ALKALINE PHOSPHATASE 126 IU/L (40-150); ANION GAP 17.7 mmol/L (8-16); BLOOD UREA NITROGEN 19 mg/dL (7-26); BUN/CREATININE RATIO 23 (6-25); CALCIUM 10.6 mg/dL (8.4-10.2); CARBON DIOXIDE 24 mmol/L (22-29); CHLORIDE 103 mmol/L (98-107); CREATINE KINASE 30 IU/L (29-168); CREATININE, SERUM 0.82 mg/dL (0.57-1.11); EST GLOMERULAR FILTRATION RATE > 60 ML/MIN (60-); GLUCOSE 95 mg/dL (74-118); POTASSIUM 3.7 mmol/L (3.5-5.1); SODIUM 141 mmol/L (136-145)
[2018-06-21 10:36] LABS: INR 0.82; PROTHROMBIN TIME 11.8 seconds (11.9-14.5)
[2018-06-21 10:37] LABS: PARTIAL THROMBOPLASTIN TIME 30.9 seconds (23.8-35.5)
[2018-06-21 10:41] LABS: BILIRUBIN,URINE NEGATIVE (NEGATIVE); CLARITY,URINE CLEAR (CLEAR); COLOR,URINE YELLOW (YELLOW); KETONES,URINE NEGATIVE (NEGATIVE); LEUKOCYTE ESTERASE ,URINE NEGATIVE (NEGATIVE); NITRITE,URINE NEGATIVE (NEGATIVE); PROTEIN,URINE DIPSTICK NEGATIVE (NEGATIVE); URINE UROBILINOGEN 0.2 mg/dL (0.2 - 1)
[2018-06-21 10:46] LABS: BACTERIA,URINE FEW /HPF; EPITHELIAL CELLS,URINE RARE /LPF; RBC,URINE 0-5 /HPF (0-5)
--- NOTE | 2018-06-21 11:05 | Diagnostic Imaging Report ---
EXAMINATION: CHEST SINGLE (PORTABLE) INDICATION: Elevated blood pressure. Nausea. ^HIGH BP ^[id number] ^1030 COMPARISON: None FINDINGS: TUBES and LINES: None. LUNGS: Lungs are well inflated. Lungs are clear. There is no evidence of pneumonia or pulmonary edema. PLEURA: No pleural effusion or pneumothorax. HEART AND MEDIASTINUM: The cardiomediastinal silhouette is unremarkable. BONES AND SOFT TISSUES: No acute osseous lesion. Soft tissues are unremarkable. UPPER ABDOMEN: No free air under the diaphragm. IMPRESSION: No acute thoracic abnormality. Signed by: Dr. Austin Payne M.D. on 06/21/2018 11:02 AM
--- NOTE | 2018-06-21 11:24 | Diagnostic Imaging Report ---
History:Hypertension, headache, nausea, blurry vision Comparison studies:None Technique: Axial images were obtained from the skull base to the vertex. Coronal and sagittal images reconstructed from the axial data. Intravenous contrast: None Dose modulation, iterative reconstruction, and/or weight based adjustment of the mA/kV was utilized to reduce the radiation dose to as low as reasonably achievable. Findings: Scalp/skull: No abnormalities. Extra-axial spaces: No masses. No fluid collections. Brain sulci: Mildly prominent. Ventricles: Mild compensatory dilatation. No hydrocephalus. Parenchyma: No abnormal densities. No masses, hemorrhage, acute or chronic cortical vascular insults. Sellar/suprasellar region: No abnormalities. Craniocervical junction: Patent foramen magnum. No Chiari one malformation. Incidental findings: Atherosclerotic calcifications in the carotid siphons . Impression: No acute abnormalities. Signed by: DR Yoel Scruggs M.D. on 06/21/2018 11:21 AM
== END 2018-06-21 12:23 | disposition home or self-care (01) ==
LOC: ER 09:26
DX: G44.211 Episodic tension-type headache, intractable (principal); I10 Essential (primary) hypertension; G89.29 Other chronic pain
CPT/HCPCS: 36415; 70450; 71045; 80053; 81001; 82550; 82553; 83880; 84484; 85025; 85610; 85730; 93005; 99284; J1200; J2765; J7030

== ENCOUNTER → 2019-02-04 | Outpatient (CLI) | payer OTHER ==
--- NOTE | 2019-02-11 08:24 | Diagnostic Imaging Report ---
#[id number] - MGSCRBIL #BILATERAL DIGITAL SCREENING MAMMOGRAM WITH CAD: 02/04/2019 CLINICAL: Routine screening. Comparison is made to exams dated: 02/08/2018 mammogram and 01/29/2017 mammogram - [facility]. Current study contains 5 films. There are scattered fibroglandular elements in both breasts. Current study was also evaluated with a Computer Aided Detection (CAD) system. Benign appearing calcifications are noted bilaterally. No significant masses, calcifications, or other findings are seen in either breast. IMPRESSION: BENIGN There is no mammographic evidence of malignancy. A 1 year screening mammogram is recommended. The patient will be notified by letter of the results. EDIBLERTO GARCIA M.D. ct/penrad:02/10/2019 17:09:53 Blood Coordinator: Octavia BAKER(Oliva)([place]), [facility] letter sent: Normal Exam Mammogram BI-RADS: 2 Benign
== END ==
LOC: MAMMO 09:11
PROVIDERS: ATTEND Student in an Organized Health Care Education/Training Program
DX: Z12.31 Encounter for screening mammogram for malignant neoplasm of breast (principal)
CPT/HCPCS: 77067